=== PATIENT | female | born 1960 | race American Indian/Alaskan Native ===

== ENCOUNTER 2017-09-04 08:10 | Outpatient (CLI) | payer OTHER ==
--- NOTE | 2017-09-04 15:27 | Magnetic Resonance Report ---
BILATERAL BREAST MRI WITHOUT AND WITH CONTRAST: 09/04/17 08:10:00 CLINICAL: Breast cancer survivor status post left partial mastectomy in early date of lobular carcinoma. COMPARISON:08/14/16 MRI and 01/29/17 bilateral screening mammogram. TECHNIQUE: Axial 1.0-mm T1 without, axial high resolution 2.0-mm T2 and axial 1.0-mm dynamic Vibrant high-resolution postcontrast T1 fat saturation sequences on a 1.5 [place]ba magnet. The examination was performed with an 8 channel dedicated [place] breast coil. Post processing with CAD and subtraction was performed on an [employer] workstation. 18.0 cc of Multihance was injected without incident for the contrast portion of the exam. Consent was obtained prior to the administration of the contrast. FINDINGS: Right: Minimal background parenchymal enhancement. No mass or suspicious enhancement. No suspicious lymph nodes. Left: Minimal background parenchymal enhancement. No mass or suspicious enhancement. Stable mild skin thickening of the left breast. No suspicious lymph nodes. IMPRESSION: Negative study. BI-RADS 1 - - Negative
== END 2017-09-04 08:11 | disposition home or self-care (01) ==
LOC: SPVIMAG 08:10
PROVIDERS: ATTEND Surgery
DX: Z85.3 Personal history of malignant neoplasm of breast (principal); Z90.12 Acquired absence of left breast and nipple
CPT/HCPCS: A9577; C8908; 77059

== ENCOUNTER 2018-12-02 07:55 | Outpatient (CLI) | payer OTHER ==
--- NOTE | 2018-12-04 09:37 | Magnetic Resonance Report ---
BILATERAL BREAST MRI WITHOUT AND WITH CONTRAST: 12/02/18 07:55:00 CLINICAL: Personal history of breast cancer. Status post left partial mastectomy for invasive lobular carcinoma in 2014. She is on Arimidex. COMPARISON:09/04/17 MRI and 02/07/18 bilateral screening mammogram. TECHNIQUE: Axial 1.0-mm T1 without, axial high resolution 2.0-mm T2 and axial 1.0-mm dynamic Vibrant high-resolution postcontrast T1 fat saturation sequences on a 1.5 Ros[place]ba magnet. The examination was performed with an 8 channel dedicated [place] breast coil. Post processing with CAD and subtraction was performed on an [employer] workstation. 20 cc of Multihance was injected without incident for the contrast portion of the exam. Consent was obtained prior to the administration of the contrast. FINDINGS: Right: Minimal background parenchymal enhancement. No mass or suspicious enhancement. No suspicious right axillary or right internal mammary lymph nodes. Left: Minimal background parenchymal enhancement. No mass or suspicious enhancement. No suspicious lymph nodes. Stable mild skin thickening of the left breast. IMPRESSION: Negative study. Recommend routine mammographic screening. 1 - - Negative
== END 2018-12-02 07:56 | disposition home or self-care (01) ==
LOC: SPVIMAG 07:55
PROVIDERS: ATTEND Surgery
DX: N64.59 Other signs and symptoms in breast (principal); E78.00 Pure hypercholesterolemia, unspecified; I10 Essential (primary) hypertension; K21.9 Gastro-esophageal reflux disease without esophagitis; E66.9 Obesity, unspecified; Z90.89 Acquired absence of other organs; Z85.3 Personal history of malignant neoplasm of breast
CPT/HCPCS: A9577; C8908; 77049

== ENCOUNTER 2020-07-14 09:03 | Outpatient (CLI) | payer BC ==
--- NOTE | 2020-07-14 12:56 | Magnetic Resonance Report ---
Bilateral breast MR without and with contrast. History: Personal history of left breast lumpectomy. Comparison: 03/25/2020, 12/02/2018, 09/04/2017. Technique: Multiplanar multisequence MR images of the breast were obtained before and after the intra venous administration of 15 mL of MultiHance contrast agent. Post processing analysis and review was performed on a separate computer workstation. Findings: Breast composition is heterogeneously dense. There is minimal background parenchymal enhancement bila terally. No discrete enhancing mass, dominant focus, or other abnormal enhancement is identified within either breast. Mild postsurgical changes in the left upper inner posterior breast appears stable. No abnormal axillary or internal mammary lymph nodes. Impression: No evidence of breast malignancy. Patient will be due for annual screening mammogram in March 2021. BIRADS 2: Benign A normal MRI does not exclude the presence of some forms of breast malignancy as literature reports s uggest that some forms of ductal carcinoma in situ or lobular carcinoma, particularly, may not be det ected on MRI. The sensitivity and specificity of MRI for cancers under 5 mm may be reduced. MRI does not replace the recommendation for annual conventional mammographic evaluation and should be used as an adjunct to mammography and physical examination as necessary. Signer Name: Danny Harvey MD Signed: 07/14/2020 12:52 PM Workstation Name: [id number]
== END 2020-07-14 09:04 | disposition home or self-care (01) ==
LOC: SPVIMAG 09:03
PROVIDERS: ATTEND Surgery
DX: Z12.31 Encounter for screening mammogram for malignant neoplasm of breast (principal); Z85.3 Personal history of malignant neoplasm of breast
CPT/HCPCS: A9577; C8908; 77049

== ENCOUNTER 2021-03-28 08:57 | Outpatient (CLI) | payer BC ==
--- NOTE | 2021-03-28 11:35 | Mammography Report ---
DIGITAL SCREENING MAMMOGRAM WITH CAD, 03/28/2021 CLINICAL INFORMATION / INDICATION: Routine screening mammography. SCREENING MAMMO Z12.31 TECHNIQUE: Digital bilateral 2D mammography was obtained in the craniocaudal and mediolateral obliqu e projections. This examination was interpreted with the benefit of Computer-Aided Detection analysis . COMPARISON: 03/25/2020 FINDINGS: Breast Density: The breasts are heterogeneously dense, which may obscure small masses. No dominant mass, suspicious calcifications, or architectural distortion in either breast. Postbiopsy change remains left breast. IMPRESSION: No mammographic evidence of malignancy. Follow up recommendation: Routine yearly BI-RADS Category 2: Benign. A "normal" or negative report should not discourage follow up or biopsy of a clinically significant f inding. A written summary of these findings will be mailed to the patient. The patient will be entered into a mammography reporting system which will generate a reminder letter for the patient's next appointmen t at the appropriate interval. The [employer] recommends yearly mammograms starting at age 40 and continuing as l mu as a woman is in good health. Breast MRI is recommended for women with an approximate 20-25% or greater lifetime risk of breast cancer, including women with a strong family history of breast or ova maritza cancer or who have been treated for Hodgkin's disease. Signer Name: Randy Carrera MD Signed: 03/28/2021 11:31 AM Workstation Name: [id number]
== END 2021-03-28 08:58 | disposition home or self-care (01) ==
LOC: SPVWC 08:57
PROVIDERS: ATTEND Family Medicine
DX: Z12.31 Encounter for screening mammogram for malignant neoplasm of breast (principal); N64.89 Other specified disorders of breast
CPT/HCPCS: 77067